=== PATIENT | female | born 1935 | race Caucasian/White ===

== ENCOUNTER 2018-10-23 10:34 | Inpatient (IN) | payer MEDICARE, OTHER ==
[~2018-10-23] VITALS: Ht 149.9 cm; Wt 68.0 kg
[~2018-10-23 10:34] MED LIST: BASAGLAR K100 UNIT/1 SC; CLOP75; Crestor20 MG PO; FURO20 PO; GLIP10; LIDO700A20 TOP; LISI10; METF500 PO; METO2.5 PO; PANT40; PIOG15 PO; POTCHL20ER PO; ROSI4; ZOLP10
[2018-10-23 11:13] LABS: BASOPHILS ABSOLUTE AUTO 0.04 K/mm3 (0.00-0.23); BASOPHILS PERCENT AUTO 0 % (0-2); EOSINOPHILS PERCENT AUTO 1 % (0-6); Hematocrit 42.4 % (33.0-51.0); Hemoglobin 12.8 g/dL (11.5-16.0); IMMATURE GRAN ABSOLUTE AUTO 0.24 K/mm3 (0.00-0.10); IMMATURE GRAN PERCENT AUTO 3 % (0-1); LYMPHOCYTES PERCENT AUTO 25 % (21-46); MONOCYTES ABSOLUTE AUTO 0.62 K/mm3 (0.16-1.47); MONOCYTES PERCENT AUTO 7 % (4-13); Mean Corpuscular HGB 26.9 pg (26.0-34.0); Mean Corpuscular HGB Conc 30.2 g/dL (31.5-36.5); Mean Corpuscular Volume 89 fL (80-100); Mean Platelet Volume 9.8 fL (9.1-12.4); NEUTROPHILS ABSOLUTE AUTO 5.75 K/mm3 (1.96-9.15); NEUTROPHILS PERCENT AUTO 64 % (41-73); Platelet Count 299 K/mm3 (150-400); RDW Coefficient Variation 14.6 % (11.7-14.2); RDW Standard Deviation 47.2 fL (35.1-46.3); Red Blood Cell Count 4.76 M/mm3 (3.80-5.20); White Blood Cell Count 8.95 K/mm3 (4.00-11.30)
[2018-10-23 11:32] LABS: Alanine Aminotransfer (ALT/SGP 16 U/L (12-78); Albumin, Blood 2.9 g/dL (3.4-5.0); Albumin/Globulin Ratio 0.6 (0.8-1.8); Alk Phos 116 U/L (50-136); Anion Gap 8 mmol/L (6-16); Aspartate Aminotrans (AST/SGOT 22 U/L (12-37); Bilirubin, Total 0.4 mg/dL (0.1-1.0); Blood Urea Nitrogen 18 mg/dL (8-24); Bun/Creatinine Ratio 12.9 (12.0-20.0); CO2, Blood 27 mmol/L (21-32); Calcium, Blood 8.6 mg/dL (8.5-10.1); Chloride, Blood 101 mmol/L (98-108); Globulin, Blood 4.5 g/dL (2.2-4.0); Glomerular Filtration Rate 38 (60-); Glucose, Blood 189 mg/dL (70-99); Potassium, Blood 4.5 mmol/L (3.5-5.5); Sodium, Blood 136 mmol/L (136-145); Total Protein, Blood 7.4 g/dL (6.4-8.2); Troponin I <0.015 ng/mL (0.000-0.040)
[2018-10-23] MEDS ORDERED: Lisinopril2.5 MG PO (12:34)
[2018-10-23] MEDS ORDERED: PANT40 PO (12:35)
[2018-10-23] MEDS ORDERED: Novolog100 UNIT/2 SC (12:37)
[2018-10-23] MEDS ORDERED: CYCL0.05OP BOTHEYES (12:38)
[2018-10-23] MEDS ORDERED: GABA300 PO (17:16)
[2018-10-23] MEDS ORDERED: Hair, Skin & N1 EACH PO (17:17)
[2018-10-23 18:57] LABS: Adenovirus Not Detected (NOT DETECT); Bordetella pertussis Not Detected (NOT DETECT); Chlamydophila pneumoniae Not Detected (NOT DETECT); Coronavirus 229E Not Detected (NOT DETECT); Coronavirus HKU1 Not Detected (NOT DETECT); Coronavirus NL63 Not Detected (NOT DETECT); Coronavirus OC43 Not Detected (NOT DETECT); Human Metapneumovirus Not Detected (NOT DETECT); Human Rhinovirus/Enterovirus Not Detected (NOT DETECT); Influenza A Not Detected (NOT DETECT); Influenza A/2009-H1 Not Detected (NOT DETECT); Influenza A/H1 Not Detected (NOT DETECT); Influenza A/H3 Not Detected (NOT DETECT); Influenza B Not Detected (NOT DETECT); Mycoplasma pneumoniae Not Detected (NOT DETECT); Parainfluenza Virus 1 Not Detected (NOT DETECT); Parainfluenza Virus 2 Not Detected (NOT DETECT); Parainfluenza Virus 3 Not Detected (NOT DETECT); Parainfluenza Virus 4 Not Detected (NOT DETECT); Respiratory Syncytial Virus Not Detected (NOT DETECT)
[2018-10-23 21:40] LABS: PCO2 Arterial 78.4 mmHg (35-45); PO2 Arterial 73.4 mmHg (80-100); pH Blood Arterial 7.12 (7.35-7.45)
[2018-10-24 03:58] LABS: BASOPHILS ABSOLUTE AUTO 0.05 K/mm3 (0.00-0.23); BASOPHILS PERCENT AUTO 0 % (0-2); EOSINOPHILS PERCENT AUTO 0 % (0-6); Hematocrit 41.7 % (33.0-51.0); Hemoglobin 12.7 g/dL (11.5-16.0); IMMATURE GRAN ABSOLUTE AUTO 0.38 K/mm3 (0.00-0.10); IMMATURE GRAN PERCENT AUTO 3 % (0-1); LYMPHOCYTES ABSOLUTE AUTO 0.74 K/mm3 (0.84-5.20); LYMPHOCYTES PERCENT AUTO 6 % (21-46); MONOCYTES ABSOLUTE AUTO 0.29 K/mm3 (0.16-1.47); MONOCYTES PERCENT AUTO 2 % (4-13); Mean Corpuscular HGB 27.1 pg (26.0-34.0); Mean Corpuscular HGB Conc 30.5 g/dL (31.5-36.5); Mean Corpuscular Volume 89 fL (80-100); Mean Platelet Volume 10.2 fL (9.1-12.4); NEUTROPHILS ABSOLUTE AUTO 11.69 K/mm3 (1.96-9.15); NEUTROPHILS PERCENT AUTO 89 % (41-73); Platelet Count 328 K/mm3 (150-400); RDW Coefficient Variation 14.6 % (11.7-14.2); RDW Standard Deviation 47.3 fL (35.1-46.3); Red Blood Cell Count 4.68 M/mm3 (3.80-5.20); White Blood Cell Count 13.15 K/mm3 (4.00-11.30)
[2018-10-24 05:10] LABS: Anion Gap 6 mmol/L (6-16); Blood Urea Nitrogen 22 mg/dL (8-24); Bun/Creatinine Ratio 17.9 (12.0-20.0); CO2, Blood 27 mmol/L (21-32); Calcium, Blood 8.7 mg/dL (8.5-10.1); Chloride, Blood 101 mmol/L (98-108); Creatinine, Blood 1.23 mg/dL (0.40-1.00); Glomerular Filtration Rate 44 (60-); Glucose, Blood 403 mg/dL (70-99); Potassium, Blood 5.6 mmol/L (3.5-5.5); Sodium, Blood 134 mmol/L (136-145); Vancomycin, Random 14.6 ug/mL
[2018-10-24 09:33] LABS: Albumin, Blood 2.6 g/dL (3.4-5.0); Anion Gap 7 mmol/L (6-16); Blood Urea Nitrogen 22 mg/dL (8-24); Bun/Creatinine Ratio 18.3 (12.0-20.0); CO2, Blood 27 mmol/L (21-32); Calcium, Blood 8.9 mg/dL (8.5-10.1); Chloride, Blood 103 mmol/L (98-108); Glomerular Filtration Rate 45 (60-); Glucose, Blood 386 mg/dL (70-99); Phosphorus, Blood 3.2 mg/dL (2.5-4.9); Potassium, Blood 5.6 mmol/L (3.5-5.5); Sodium, Blood 137 mmol/L (136-145)
[2018-10-24 10:52] LABS: PCO2 Arterial 55.7 mmHg (35-45); PO2 Arterial 63.7 mmHg (80-100); pH Blood Arterial 7.31 (7.35-7.45)
[2018-10-24 14:36] LABS: Albumin, Blood 2.8 g/dL (3.4-5.0); Anion Gap 5 mmol/L (6-16); Blood Urea Nitrogen 22 mg/dL (8-24); CO2, Blood 30 mmol/L (21-32); Calcium, Blood 9.1 mg/dL (8.5-10.1); Chloride, Blood 102 mmol/L (98-108); Creatinine, Blood 1.22 mg/dL (0.40-1.00); Glomerular Filtration Rate 44 (60-); Glucose, Blood 281 mg/dL (70-99); Phosphorus, Blood 2.4 mg/dL (2.5-4.9); Potassium, Blood 5.1 mmol/L (3.5-5.5); Sodium, Blood 137 mmol/L (136-145)
[2018-10-25 04:54] LABS: BASOPHILS ABSOLUTE AUTO 0.03 K/mm3 (0.00-0.23); BASOPHILS PERCENT AUTO 0 % (0-2); EOSINOPHILS PERCENT AUTO 0 % (0-6); Hematocrit 39.5 % (33.0-51.0); Hemoglobin 12.3 g/dL (11.5-16.0); IMMATURE GRAN PERCENT AUTO 2 % (0-1); LYMPHOCYTES ABSOLUTE AUTO 0.67 K/mm3 (0.84-5.20); LYMPHOCYTES PERCENT AUTO 3 % (21-46); MONOCYTES ABSOLUTE AUTO 0.72 K/mm3 (0.16-1.47); MONOCYTES PERCENT AUTO 3 % (4-13); Mean Corpuscular HGB 26.7 pg (26.0-34.0); Mean Corpuscular HGB Conc 31.1 g/dL (31.5-36.5); Mean Platelet Volume 9.7 fL (9.1-12.4); NEUTROPHILS ABSOLUTE AUTO 19.05 K/mm3 (1.96-9.15); NEUTROPHILS PERCENT AUTO 91 % (41-73); Platelet Count 308 K/mm3 (150-400); RDW Coefficient Variation 14.9 % (11.7-14.2); RDW Standard Deviation 46.1 fL (35.1-46.3); White Blood Cell Count 20.87 K/mm3 (4.00-11.30)
[2018-10-25 05:05] LABS: Mean Corpuscular Volume 86 fL (80-100)
[2018-10-25 05:14] LABS: Albumin, Blood 2.7 g/dL (3.4-5.0); Anion Gap 5 mmol/L (6-16); Blood Urea Nitrogen 23 mg/dL (8-24); Bun/Creatinine Ratio 18.5 (12.0-20.0); CO2, Blood 32 mmol/L (21-32); Calcium, Blood 9.1 mg/dL (8.5-10.1); Chloride, Blood 103 mmol/L (98-108); Creatinine, Blood 1.24 mg/dL (0.40-1.00); Glomerular Filtration Rate 44 (60-); Glucose, Blood 113 mg/dL (70-99); Phosphorus, Blood 2.3 mg/dL (2.5-4.9); Potassium, Blood 4.3 mmol/L (3.5-5.5); Sodium, Blood 140 mmol/L (136-145); Vancomycin, Random 15.9 ug/mL
[2018-10-25 09:45] LABS: PCO2 Arterial 47.4 mmHg (35-45); PO2 Arterial 111 mmHg (80-100); pH Blood Arterial 7.44 (7.35-7.45)
[2018-10-26 05:31] LABS: BASOPHILS ABSOLUTE AUTO 0.02 K/mm3 (0.00-0.23); BASOPHILS PERCENT AUTO 0 % (0-2); EOSINOPHILS PERCENT AUTO 0 % (0-6); Hematocrit 40.4 % (33.0-51.0); Hemoglobin 12.2 g/dL (11.5-16.0); IMMATURE GRAN ABSOLUTE AUTO 0.18 K/mm3 (0.00-0.10); IMMATURE GRAN PERCENT AUTO 1 % (0-1); LYMPHOCYTES ABSOLUTE AUTO 0.42 K/mm3 (0.84-5.20); LYMPHOCYTES PERCENT AUTO 3 % (21-46); MONOCYTES ABSOLUTE AUTO 0.72 K/mm3 (0.16-1.47); MONOCYTES PERCENT AUTO 4 % (4-13); Mean Corpuscular HGB 26.9 pg (26.0-34.0); Mean Corpuscular HGB Conc 30.2 g/dL (31.5-36.5); Mean Platelet Volume 10.1 fL (9.1-12.4); NEUTROPHILS ABSOLUTE AUTO 15.31 K/mm3 (1.96-9.15); NEUTROPHILS PERCENT AUTO 92 % (41-73); Platelet Count 300 K/mm3 (150-400); RDW Coefficient Variation 15.1 % (11.7-14.2); RDW Standard Deviation 48.9 fL (35.1-46.3); Red Blood Cell Count 4.54 M/mm3 (3.80-5.20); White Blood Cell Count 16.65 K/mm3 (4.00-11.30)
[2018-10-26 05:33] LABS: Mean Corpuscular Volume 89 fL (80-100)
[2018-10-26 05:54] LABS: Albumin, Blood 2.7 g/dL (3.4-5.0); Anion Gap 4 mmol/L (6-16); Blood Urea Nitrogen 30 mg/dL (8-24); Bun/Creatinine Ratio 23.8 (12.0-20.0); CO2, Blood 33 mmol/L (21-32); Chloride, Blood 103 mmol/L (98-108); Creatinine, Blood 1.26 mg/dL (0.40-1.00); Glomerular Filtration Rate 43 (60-); Glucose, Blood 204 mg/dL (70-99); Phosphorus, Blood 3.2 mg/dL (2.5-4.9); Potassium, Blood 4.1 mmol/L (3.5-5.5); Sodium, Blood 140 mmol/L (136-145); Vancomycin, Random 16.5 ug/mL
[2018-10-27 04:13] LABS: BASOPHILS ABSOLUTE AUTO 0.01 K/mm3 (0.00-0.23); BASOPHILS PERCENT AUTO 0 % (0-2); EOSINOPHILS PERCENT AUTO 0 % (0-6); Hematocrit 40.9 % (33.0-51.0); Hemoglobin 12.5 g/dL (11.5-16.0); IMMATURE GRAN PERCENT AUTO 1 % (0-1); LYMPHOCYTES PERCENT AUTO 2 % (21-46); MONOCYTES PERCENT AUTO 5 % (4-13); Mean Corpuscular HGB 26.8 pg (26.0-34.0); Mean Corpuscular HGB Conc 30.6 g/dL (31.5-36.5); Mean Corpuscular Volume 88 fL (80-100); Mean Platelet Volume 10.1 fL (9.1-12.4); NEUTROPHILS ABSOLUTE AUTO 11.31 K/mm3 (1.96-9.15); NEUTROPHILS PERCENT AUTO 92 % (41-73); Platelet Count 299 K/mm3 (150-400); RDW Coefficient Variation 14.9 % (11.7-14.2); RDW Standard Deviation 47.9 fL (35.1-46.3); Red Blood Cell Count 4.66 M/mm3 (3.80-5.20); White Blood Cell Count 12.32 K/mm3 (4.00-11.30)
[2018-10-27 04:41] LABS: Magnesium, Blood 2.3 mg/dL (1.6-2.4)
[2018-10-27 04:44] LABS: Albumin, Blood 2.7 g/dL (3.4-5.0); Albumin/Globulin Ratio 0.7 (0.8-1.8); Bilirubin, Total 0.4 mg/dL (0.1-1.0); Calcium, Blood 8.9 mg/dL (8.5-10.1); Creatinine, Blood 1.18 mg/dL (0.40-1.00); Globulin, Blood 3.7 g/dL (2.2-4.0); Potassium, Blood 4.1 mmol/L (3.5-5.5); Total Protein, Blood 6.4 g/dL (6.4-8.2)
[2018-10-28 04:07] LABS: BASOPHILS ABSOLUTE AUTO 0.02 K/mm3 (0.00-0.23); BASOPHILS PERCENT AUTO 0 % (0-2); EOSINOPHILS PERCENT AUTO 0 % (0-6); Hematocrit 42.2 % (33.0-51.0); Hemoglobin 12.8 g/dL (11.5-16.0); IMMATURE GRAN ABSOLUTE AUTO 0.12 K/mm3 (0.00-0.10); IMMATURE GRAN PERCENT AUTO 1 % (0-1); LYMPHOCYTES PERCENT AUTO 3 % (21-46); MONOCYTES ABSOLUTE AUTO 0.52 K/mm3 (0.16-1.47); MONOCYTES PERCENT AUTO 5 % (4-13); Mean Corpuscular HGB 26.4 pg (26.0-34.0); Mean Corpuscular HGB Conc 30.3 g/dL (31.5-36.5); Mean Corpuscular Volume 87 fL (80-100); Mean Platelet Volume 10.2 fL (9.1-12.4); NEUTROPHILS ABSOLUTE AUTO 10.15 K/mm3 (1.96-9.15); NEUTROPHILS PERCENT AUTO 91 % (41-73); Platelet Count 259 K/mm3 (150-400); RDW Coefficient Variation 14.9 % (11.7-14.2); RDW Standard Deviation 47.6 fL (35.1-46.3); Red Blood Cell Count 4.85 M/mm3 (3.80-5.20); White Blood Cell Count 11.11 K/mm3 (4.00-11.30)
[2018-10-28 04:27] LABS: Albumin, Blood 2.6 g/dL (3.4-5.0); Albumin/Globulin Ratio 0.7 (0.8-1.8); Bilirubin, Total 0.6 mg/dL (0.1-1.0); Bun/Creatinine Ratio 31.9 (12.0-20.0); Creatinine, Blood 1.16 mg/dL (0.40-1.00); Globulin, Blood 3.6 g/dL (2.2-4.0); Magnesium, Blood 2.4 mg/dL (1.6-2.4); Potassium, Blood 4.7 mmol/L (3.5-5.5); Total Protein, Blood 6.2 g/dL (6.4-8.2)
[2018-10-28 09:53] LABS: Thyroid Stimulating Hormone 0.291 uIU/mL (0.360-4.800)
[2018-10-28 10:15] LABS: Troponin I 4.71 ng/mL (0.000-0.040)
[2018-10-29 03:51] LABS: BASOPHILS ABSOLUTE AUTO 0.03 K/mm3 (0.00-0.23); BASOPHILS PERCENT AUTO 0 % (0-2); EOSINOPHILS ABSOLUTE AUTO 0.01 K/mm3 (0.00-0.68); EOSINOPHILS PERCENT AUTO 0 % (0-6); Hematocrit 42.7 % (33.0-51.0); Hemoglobin 13.1 g/dL (11.5-16.0); IMMATURE GRAN ABSOLUTE AUTO 0.17 K/mm3 (0.00-0.10); IMMATURE GRAN PERCENT AUTO 1 % (0-1); LYMPHOCYTES ABSOLUTE AUTO 0.64 K/mm3 (0.84-5.20); LYMPHOCYTES PERCENT AUTO 4 % (21-46); MONOCYTES ABSOLUTE AUTO 1.42 K/mm3 (0.16-1.47); MONOCYTES PERCENT AUTO 9 % (4-13); Mean Corpuscular HGB 26.8 pg (26.0-34.0); Mean Corpuscular HGB Conc 30.7 g/dL (31.5-36.5); Mean Corpuscular Volume 87 fL (80-100); Mean Platelet Volume 10.1 fL (9.1-12.4); NEUTROPHILS ABSOLUTE AUTO 12.96 K/mm3 (1.96-9.15); NEUTROPHILS PERCENT AUTO 85 % (41-73); Platelet Count 245 K/mm3 (150-400); RDW Coefficient Variation 14.9 % (11.7-14.2); RDW Standard Deviation 47.9 fL (35.1-46.3); Red Blood Cell Count 4.89 M/mm3 (3.80-5.20); White Blood Cell Count 15.23 K/mm3 (4.00-11.30)
[2018-10-29 04:13] LABS: Magnesium, Blood 2.4 mg/dL (1.6-2.4)
[2018-10-29 04:22] LABS: Alanine Aminotransfer (ALT/SGP 28 U/L (12-78); Albumin, Blood 2.6 g/dL (3.4-5.0); Albumin/Globulin Ratio 0.7 (0.8-1.8); Alk Phos 77 U/L (50-136); Anion Gap 3 mmol/L (6-16); Aspartate Aminotrans (AST/SGOT 28 U/L (12-37); Bilirubin, Total 0.6 mg/dL (0.1-1.0); Blood Urea Nitrogen 43 mg/dL (8-24); Bun/Creatinine Ratio 34.1 (12.0-20.0); CO2, Blood 35 mmol/L (21-32); Calcium, Blood 8.8 mg/dL (8.5-10.1); Chloride, Blood 100 mmol/L (98-108); Creatinine, Blood 1.26 mg/dL (0.40-1.00); Digoxin (Lanoxin) 1.57 ug/mL (0.80-2.00); Globulin, Blood 3.5 g/dL (2.2-4.0); Glomerular Filtration Rate 43 (60-); Glucose, Blood 225 mg/dL (70-99); Potassium, Blood 4.6 mmol/L (3.5-5.5); Sodium, Blood 138 mmol/L (136-145); Total Protein, Blood 6.1 g/dL (6.4-8.2)
[2018-10-29 12:30] LABS: International Normalized Ratio 1.11; Prothrombin Time Results 11.7 Sec (9.7-11.5)
[2018-10-30 03:43] LABS: BASOPHILS ABSOLUTE AUTO 0.04 K/mm3 (0.00-0.23); BASOPHILS PERCENT AUTO 0 % (0-2); EOSINOPHILS ABSOLUTE AUTO 0.02 K/mm3 (0.00-0.68); EOSINOPHILS PERCENT AUTO 0 % (0-6); Hematocrit 40.5 % (33.0-51.0); Hemoglobin 12.4 g/dL (11.5-16.0); IMMATURE GRAN ABSOLUTE AUTO 0.23 K/mm3 (0.00-0.10); IMMATURE GRAN PERCENT AUTO 2 % (0-1); LYMPHOCYTES ABSOLUTE AUTO 1.01 K/mm3 (0.84-5.20); LYMPHOCYTES PERCENT AUTO 7 % (21-46); MONOCYTES PERCENT AUTO 8 % (4-13); Mean Corpuscular HGB 26.9 pg (26.0-34.0); Mean Corpuscular HGB Conc 30.6 g/dL (31.5-36.5); Mean Corpuscular Volume 88 fL (80-100); Mean Platelet Volume 10.2 fL (9.1-12.4); NEUTROPHILS ABSOLUTE AUTO 11.58 K/mm3 (1.96-9.15); NEUTROPHILS PERCENT AUTO 83 % (41-73); Platelet Count 243 K/mm3 (150-400); RDW Coefficient Variation 14.9 % (11.7-14.2); RDW Standard Deviation 47.9 fL (35.1-46.3); Red Blood Cell Count 4.61 M/mm3 (3.80-5.20); White Blood Cell Count 13.98 K/mm3 (4.00-11.30)
[2018-10-30 04:06] LABS: Alanine Aminotransfer (ALT/SGP 27 U/L (12-78); Albumin, Blood 2.4 g/dL (3.4-5.0); Albumin/Globulin Ratio 0.7 (0.8-1.8); Alk Phos 70 U/L (50-136); Anion Gap 4 mmol/L (6-16); Aspartate Aminotrans (AST/SGOT 25 U/L (12-37); Bilirubin, Total 0.6 mg/dL (0.1-1.0); Blood Urea Nitrogen 39 mg/dL (8-24); Bun/Creatinine Ratio 33.9 (12.0-20.0); CO2, Blood 35 mmol/L (21-32); Calcium, Blood 8.5 mg/dL (8.5-10.1); Chloride, Blood 101 mmol/L (98-108); Creatinine, Blood 1.15 mg/dL (0.40-1.00); Globulin, Blood 3.3 g/dL (2.2-4.0); Glomerular Filtration Rate 48 (60-); Glucose, Blood 98 mg/dL (70-99); Potassium, Blood 3.8 mmol/L (3.5-5.5); Sodium, Blood 140 mmol/L (136-145); Total Protein, Blood 5.7 g/dL (6.4-8.2)
[2018-10-30 04:14] LABS: Digoxin (Lanoxin) 0.78 ug/mL (0.80-2.00)
[2018-10-31 05:08] LABS: BASOPHILS ABSOLUTE AUTO 0.04 K/mm3 (0.00-0.23); BASOPHILS PERCENT AUTO 0 % (0-2); EOSINOPHILS ABSOLUTE AUTO 0.03 K/mm3 (0.00-0.68); EOSINOPHILS PERCENT AUTO 0 % (0-6); Hematocrit 40.6 % (33.0-51.0); Hemoglobin 12.5 g/dL (11.5-16.0); IMMATURE GRAN ABSOLUTE AUTO 0.27 K/mm3 (0.00-0.10); IMMATURE GRAN PERCENT AUTO 2 % (0-1); LYMPHOCYTES ABSOLUTE AUTO 1.14 K/mm3 (0.84-5.20); LYMPHOCYTES PERCENT AUTO 9 % (21-46); MONOCYTES ABSOLUTE AUTO 0.97 K/mm3 (0.16-1.47); MONOCYTES PERCENT AUTO 8 % (4-13); Mean Corpuscular HGB 26.7 pg (26.0-34.0); Mean Corpuscular HGB Conc 30.8 g/dL (31.5-36.5); Mean Corpuscular Volume 87 fL (80-100); Mean Platelet Volume 10.1 fL (9.1-12.4); NEUTROPHILS ABSOLUTE AUTO 10.17 K/mm3 (1.96-9.15); NEUTROPHILS PERCENT AUTO 81 % (41-73); Platelet Count 218 K/mm3 (150-400); RDW Standard Deviation 47.4 fL (35.1-46.3); Red Blood Cell Count 4.69 M/mm3 (3.80-5.20); White Blood Cell Count 12.62 K/mm3 (4.00-11.30)
[2018-10-31 06:04] LABS: Albumin, Blood 2.5 g/dL (3.4-5.0); Albumin/Globulin Ratio 0.7 (0.8-1.8); Bilirubin, Total 0.6 mg/dL (0.1-1.0); Bun/Creatinine Ratio 33.3 (12.0-20.0); Calcium, Blood 8.6 mg/dL (8.5-10.1); Creatinine, Blood 1.23 mg/dL (0.40-1.00); Globulin, Blood 3.4 g/dL (2.2-4.0); Potassium, Blood 4.3 mmol/L (3.5-5.5); Total Protein, Blood 5.9 g/dL (6.4-8.2)
[2018-10-31] MEDS ORDERED: INSULANPEN SC (12:48)
[2018-10-31] MEDS ORDERED: POTA10T PO (12:51)
[2018-10-31] MEDS ORDERED: Pacerone100 MG PO (12:51)
[2018-10-31] MEDS ORDERED: ATOR40TA PO (12:51)
[2018-10-31] MEDS ORDERED: LANOXIN125 MCG PO (12:52)
[2018-10-31] MEDS ORDERED: Norco 5-325 Ta1 EACH PO (12:53)
[2018-10-31] MEDS ORDERED: LEVFLO500 PO (12:55)
[2018-10-31] MEDS ORDERED: PRED10 PO (12:56)
[2018-10-31] MEDS ORDERED: CLOP75 PO (22:57)
[2018-12-24] MEDS ORDERED: Humalog100 UNIT/1 SC (15:12)
[2018-12-24] MEDS ORDERED: LISI5 PO (15:15)
[2018-12-24] MEDS ORDERED: CLIN300 PO (15:16)
[2018-12-24] MEDS ORDERED: ROSU5 (15:17)
== END 2018-10-31 14:54 | disposition home health service (06) | DRG 871 ==
LOC: ER 10:34 → MEDS 12:59 → PCU 12:59 → MEDS 10-30 15:01 → ENPENDDIS 10-31 10:58 → MEDS 10-31 14:54
PROVIDERS: Emergency Medicine; Internal Medicine; Internal Medicine Cardiovascular Disease; Nurse Practitioner Acute Care; ADMIT Family Medicine
PROC: 5A09457 Assistance with Respiratory Ventilation, 24-96 Consecutive Hours, Continuous Positive Airway Pressure (ICD-10-PCS; principal; 2018-10-23)
DX: A41.9 Sepsis, unspecified organism (principal); I50.33 Acute on chronic diastolic (congestive) heart failure; J96.01 Acute respiratory failure with hypoxia; I21.4 Non-ST elevation (NSTEMI) myocardial infarction; J96.02 Acute respiratory failure with hypercapnia; J18.1 Lobar pneumonia, unspecified organism; N17.9 Acute kidney failure, unspecified; J44.0 Chronic obstructive pulmonary disease with (acute) lower respiratory infection; I48.91 Unspecified atrial fibrillation; G35 Multiple sclerosis; R65.20 Severe sepsis without septic shock; Z51.5 Encounter for palliative care; E78.5 Hyperlipidemia, unspecified; Z86.73 Personal history of transient ischemic attack (TIA), and cerebral infarction without residual deficits; I73.9 Peripheral vascular disease, unspecified; L89.892 Pressure ulcer of other site, stage 2; Z99.3 Dependence on wheelchair; E11.22 Type 2 diabetes mellitus with diabetic chronic kidney disease; N18.3 Chronic kidney disease, stage 3 (moderate); Z66 Do not resuscitate; Z79.4 Long term (current) use of insulin
CPT/HCPCS: 36415; 36569; 36600; 71045; 71046; 78582; 80048; 80053; 80069; 80162; 80202; 82803; 82947; 83036; 83605; 83735; 83880; 84439; 84443; 84484; 85025; 85379; 85610; 85730; 87040; 87486; 87581; 87633; 87798; 92526; 92610; 93005; 93010; 93306; 93308; 93321; 94640; 94660; 94762; 96361; 96365; 96367; 96375; 99285-25; A9270; A9270-GY; A9540; A9558; C1751; J0282; J0692; J1160; J1644; J1650; J1815; J1885; J1940; J1956; J2405; J2930; J3370; J3475; J7030; J7050; J7060; J7120; J7512

== ENCOUNTER 2018-10-31 22:37 | Observation (INO) | payer MEDICARE, OTHER ==
[~2018-10-31] VITALS: Ht 149.9 cm; Wt 68.0 kg
[~2018-10-31 22:37] MED LIST changes: +ATOR40TA PO; +CYCL0.05OP BOTHEYES; +GABA300 PO; +Hair, Skin & N1 EACH PO; +INSULANPEN SC; +LANOXIN125 MCG PO; +LEVFLO500 PO; +Lisinopril2.5 MG PO; +Norco 5-325 Ta1 EACH PO; +Novolog100 UNIT/2 SC; +PANT40 PO; +POTA10T PO; +PRED10 PO; +Pacerone100 MG PO
[2018-10-31] MEDS ORDERED: CLOP75 PO (22:57)
[2018-10-31 23:29] LABS: BASOPHILS ABSOLUTE AUTO 0.03 K/mm3 (0.00-0.23); BASOPHILS PERCENT AUTO 0 % (0-2); EOSINOPHILS ABSOLUTE AUTO 0.02 K/mm3 (0.00-0.68); EOSINOPHILS PERCENT AUTO 0 % (0-6); Hematocrit 41.3 % (33.0-51.0); Hemoglobin 12.7 g/dL (11.5-16.0); IMMATURE GRAN ABSOLUTE AUTO 0.24 K/mm3 (0.00-0.10); IMMATURE GRAN PERCENT AUTO 2 % (0-1); LYMPHOCYTES ABSOLUTE AUTO 0.83 K/mm3 (0.84-5.20); LYMPHOCYTES PERCENT AUTO 7 % (21-46); MONOCYTES ABSOLUTE AUTO 0.84 K/mm3 (0.16-1.47); MONOCYTES PERCENT AUTO 7 % (4-13); Mean Corpuscular HGB 26.9 pg (26.0-34.0); Mean Corpuscular HGB Conc 30.8 g/dL (31.5-36.5); Mean Corpuscular Volume 88 fL (80-100); Mean Platelet Volume 10.8 fL (9.1-12.4); NEUTROPHILS ABSOLUTE AUTO 10.28 K/mm3 (1.96-9.15); NEUTROPHILS PERCENT AUTO 84 % (41-73); Platelet Count 228 K/mm3 (150-400); RDW Coefficient Variation 14.6 % (11.7-14.2); RDW Standard Deviation 47.1 fL (35.1-46.3); Red Blood Cell Count 4.72 M/mm3 (3.80-5.20); White Blood Cell Count 12.24 K/mm3 (4.00-11.30)
[2018-10-31 23:51] LABS: Albumin, Blood 2.7 g/dL (3.4-5.0); Albumin/Globulin Ratio 0.8 (0.8-1.8); Bilirubin, Total 0.6 mg/dL (0.1-1.0); Bun/Creatinine Ratio 39.5 (12.0-20.0); Calcium, Blood 8.6 mg/dL (8.5-10.1); Creatinine, Blood 1.29 mg/dL (0.40-1.00); Globulin, Blood 3.4 g/dL (2.2-4.0); Potassium, Blood 4.5 mmol/L (3.5-5.5); Total Protein, Blood 6.1 g/dL (6.4-8.2)
[2018-11-01 02:27] LABS: Digoxin (Lanoxin) 0.81 ug/mL (0.80-2.00)
--- NOTE | 2018-11-01 04:36 | NUR ---
SHIFT SUMMARY PT ARRIVED TO ROOM IN NO DISTRESS. PT IS NONAMBULATORY PER PT. PT HAD SOME LEFT SIDE FLANK PAIN AND TX PER EMAR. PT HAS BEEN SLEEPING WELL SINCE ARRIVAL. PT HAS NOT URINATED THUS FAR WILL CONTINUE TO ASSESS AND POSSIBLY BLADDER SCAN SOON. CALL LIGHT IN REACH. PT SLEEPING.
[2018-11-01 18:21] LABS: Source, Urine Catheter
--- NOTE | 2018-11-01 18:41 | NUR ---
SHIFT SUMMARY PATIENT HAS BEEN UNABLE TO VOID TODAY. STRAIGHT CATH PRN, RETAINING 1000ML OF URINE. FAMILY IN VISITING. STATES PATIENT LIVES AT HOME ALONE CAREGIVERS AND HOUSE KEEPERS VISIT HOME MINIMALLY. FAMILY LIVES OUT OF TOWN. UNABLE TO CARE FOR PATIENT.
[2018-11-01 19:16] LABS: Bilirubin, Urine Neg (Neg); Blood, Urine 3+ (Neg); Glucose Qualitative, Urine 2+ (Neg); Ketones, Urine 1+ (Neg); Leukocyte Esterase, Urine Neg (Neg); Nitrite, Urine Neg (Neg); Protein, Urine Neg (Neg); Specific Gravity, Urine 1.015 (1.003-1.022); Urobilinogen, Urine NORM (Normal)
[2018-11-01 19:32] LABS: Appearance, Urine Clear (Clear); Color, Urine Yellow (P-Yellow)
[2018-11-01 19:33] LABS: Squamous Epithelial Cells Rare /hpf (Few)
[2018-11-01 19:34] LABS: Bacteria Rare /hpf; White Blood Cells, Urine 0-2 /hpf (0-5)
--- NOTE | 2018-11-02 04:08 | NUR ---
SHIFT SUMMARY PT CONTINUES TO REFUSE TO EAT. PT DOES DRINK WATER FREQUENTLY. PT HAS HAD LITTLE URINE OUTPUT DURING SHIFT. PT BLADDER SCAN AT MIDNIGHT WAS UNREMARKABLE. PT INSULIN ORDER WAS CHANGED DUE TO PT NOT EATING. PT FAMILY IS CONCERNED TO WHAT THE PLAN FOR THE PT IS GOING TO BE. THEY WILL BE HERE SATURDAY TO MEET WITH PROVIDER. PT CURRENTLY SLEEPING AND BREATHING EASY. [facility].
[2018-11-02 05:06] LABS: BASOPHILS ABSOLUTE AUTO 0.02 K/mm3 (0.00-0.23); BASOPHILS PERCENT AUTO 0 % (0-2); EOSINOPHILS ABSOLUTE AUTO 0.17 K/mm3 (0.00-0.68); EOSINOPHILS PERCENT AUTO 2 % (0-6); Hematocrit 39.6 % (33.0-51.0); Hemoglobin 12.1 g/dL (11.5-16.0); IMMATURE GRAN ABSOLUTE AUTO 0.18 K/mm3 (0.00-0.10); IMMATURE GRAN PERCENT AUTO 2 % (0-1); LYMPHOCYTES ABSOLUTE AUTO 1.27 K/mm3 (0.84-5.20); LYMPHOCYTES PERCENT AUTO 13 % (21-46); MONOCYTES ABSOLUTE AUTO 0.73 K/mm3 (0.16-1.47); MONOCYTES PERCENT AUTO 7 % (4-13); Mean Corpuscular HGB 26.6 pg (26.0-34.0); Mean Corpuscular HGB Conc 30.6 g/dL (31.5-36.5); Mean Corpuscular Volume 87 fL (80-100); Mean Platelet Volume 10.3 fL (9.1-12.4); NEUTROPHILS ABSOLUTE AUTO 7.66 K/mm3 (1.96-9.15); NEUTROPHILS PERCENT AUTO 76 % (41-73); Platelet Count 202 K/mm3 (150-400); RDW Coefficient Variation 14.6 % (11.7-14.2); RDW Standard Deviation 46.2 fL (35.1-46.3); Red Blood Cell Count 4.55 M/mm3 (3.80-5.20); White Blood Cell Count 10.03 K/mm3 (4.00-11.30)
[2018-11-02 05:23] LABS: Bun/Creatinine Ratio 37.3 (12.0-20.0); Calcium, Blood 8.7 mg/dL (8.5-10.1); Creatinine, Blood 1.1 mg/dL (0.40-1.00); Potassium, Blood 3.8 mmol/L (3.5-5.5)
--- NOTE | 2018-11-02 18:18 | NUR ---
SHIFT SUMMARY PATIENT A&O X4, BEDREST. Q 2 REPOSITION. BLADDER SCANNING PATIENT EVERY 6 HOURS AND STRAIGHT CATH FOR >500 ML. RN BS X1 THIS SHIFT AND STRAIGHT CATH X1 WITH 500 ML OUT. PATIENT DENIES ANY PAIN, SOB, OR NAUSEA. O2 @ 2L NC, SATS >90%. VSS. NO ACUTE CHANGES THIS SHIFT. RN WILL CONTINUE TO MONITOR.
--- NOTE | 2018-11-03 04:23 | NUR ---
SHIFT SUMMARY PT WAS FOUND TO HAVE BP IN 90'S. PT CONTINUES TO HAVE POOR PO INTAKE. PROVIDER CALLED AND A ORDER FOR GENTLE HYDRATION WAS RECIEVED. PT DID NOT NEED TO BE STRIGHT CATHED THIS SHIFT. BLADDER SCAN WAS < 500 ML. NO COMPLAINTS FROM PT. WILL CONTINUE TO MONITIR. CALL LIGHT IN REACH.
[2018-11-03 08:31] LABS: BASOPHILS ABSOLUTE AUTO 0.03 K/mm3 (0.00-0.23); BASOPHILS PERCENT AUTO 0 % (0-2); EOSINOPHILS ABSOLUTE AUTO 0.14 K/mm3 (0.00-0.68); EOSINOPHILS PERCENT AUTO 2 % (0-6); Hematocrit 37.4 % (33.0-51.0); Hemoglobin 11.1 g/dL (11.5-16.0); IMMATURE GRAN ABSOLUTE AUTO 0.23 K/mm3 (0.00-0.10); IMMATURE GRAN PERCENT AUTO 3 % (0-1); LYMPHOCYTES ABSOLUTE AUTO 1.29 K/mm3 (0.84-5.20); LYMPHOCYTES PERCENT AUTO 16 % (21-46); MONOCYTES ABSOLUTE AUTO 0.65 K/mm3 (0.16-1.47); MONOCYTES PERCENT AUTO 8 % (4-13); Mean Corpuscular HGB 26.3 pg (26.0-34.0); Mean Corpuscular HGB Conc 29.7 g/dL (31.5-36.5); Mean Corpuscular Volume 89 fL (80-100); NEUTROPHILS ABSOLUTE AUTO 5.56 K/mm3 (1.96-9.15); NEUTROPHILS PERCENT AUTO 70 % (41-73); Platelet Count 178 K/mm3 (150-400); RDW Coefficient Variation 14.6 % (11.7-14.2); RDW Standard Deviation 46.5 fL (35.1-46.3); Red Blood Cell Count 4.22 M/mm3 (3.80-5.20)
[2018-11-03 08:51] LABS: Albumin, Blood 2.2 g/dL (3.4-5.0); Albumin/Globulin Ratio 0.8 (0.8-1.8); Bilirubin, Total 0.5 mg/dL (0.1-1.0); Bun/Creatinine Ratio 37.4 (12.0-20.0); Creatinine, Blood 1.15 mg/dL (0.40-1.00); Globulin, Blood 2.9 g/dL (2.2-4.0); Potassium, Blood 4.1 mmol/L (3.5-5.5); Total Protein, Blood 5.1 g/dL (6.4-8.2)
--- NOTE | 2018-11-03 14:40 | NUR ---
Clinical Visit: Consult for readmission, symptom managment. Pt is alert, oriented, anxious and painful. She reports that she has chronic back pain. She states that it is moderate pain at this time. Reviewed order of events that led to a readmission. Pt was taken home last week, her house was locked and it took 45 minutes for the drivers to get the home open for her. Ambulance was called at a later time from a family member. She wasn't able to breath and she ran out of oxygen. At this time, she is expressing anger at being in the hospital again. She is frustrated and angry with her family for "making me do things that I don't want to," and "taking my independence away." She shares that she does not want any of her family members making choices for her. She trusts her caregiver and would like HER to be her designated caregiver. Recommended that pt fill out an advance directive. Reviewed document. She is interested in this document, however, she doesn't wish to do it right now, and her caregiver is on vacation and will not be able to accept and sign it right now. Instructed to please have this conversation with her caregiver, to see if it is something she would be willing to do. Pt states, "she would be fine with it. She has been with me for 4 years." Reported pain level to nursing. Will plan on following up with pt in the next few days to assist in develping a plan in advance of illness. She have very strong feelings about this conversation, as she feels that this has been discussed "all the time." Advised her that she is not in good health and has many chronic issues that are now getting worse. She states, "I DONT want to talk about it." Will remain available.
--- NOTE | 2018-11-03 18:09 | NUR ---
PATIENT IS ALERT AND ORIENTED AND COOPERATIVE WITH NURSING CARE. COMPLAINTS OF HIP PAIN TREATED PER EMAR AND REPOSITIONING. PATIENT ATE VERY LITTLE TODAY, POOR APPETITE. FAMILY WAS AT THE BEDSIDE AND SPOKE TO DR. JAMIL AND THE PAINT STOCK CLERK ABOUT DISCHARGE PLANNING. BLADDER SCANNED Q6H AND STRAIGHT CATHED TWICE THIS SHIFT WITH OUTPUT OF 800ML AND 625ML. ATTENDS IN PLACE. REPOSITIONED WITH PILLOWS. ASSISTANCE WITH FEEDING. WILL CONTINUE TO MONITOR
[2018-11-04 05:03] LABS: BASOPHILS ABSOLUTE AUTO 0.03 K/mm3 (0.00-0.23); BASOPHILS PERCENT AUTO 0 % (0-2); EOSINOPHILS PERCENT AUTO 1 % (0-6); IMMATURE GRAN ABSOLUTE AUTO 0.23 K/mm3 (0.00-0.10); IMMATURE GRAN PERCENT AUTO 3 % (0-1); LYMPHOCYTES ABSOLUTE AUTO 1.31 K/mm3 (0.84-5.20); LYMPHOCYTES PERCENT AUTO 15 % (21-46); MONOCYTES ABSOLUTE AUTO 0.66 K/mm3 (0.16-1.47); MONOCYTES PERCENT AUTO 8 % (4-13); Mean Corpuscular HGB 27.4 pg (26.0-34.0); Mean Corpuscular HGB Conc 30.6 g/dL (31.5-36.5); Mean Corpuscular Volume 90 fL (80-100); Mean Platelet Volume 11.1 fL (9.1-12.4); NEUTROPHILS ABSOLUTE AUTO 6.47 K/mm3 (1.96-9.15); NEUTROPHILS PERCENT AUTO 74 % (41-73); Platelet Count 184 K/mm3 (150-400); RDW Coefficient Variation 14.4 % (11.7-14.2); RDW Standard Deviation 46.7 fL (35.1-46.3); Red Blood Cell Count 4.02 M/mm3 (3.80-5.20)
[2018-11-04 05:23] LABS: Albumin, Blood 2.2 g/dL (3.4-5.0); Albumin/Globulin Ratio 0.8 (0.8-1.8); Bilirubin, Total 0.4 mg/dL (0.1-1.0); Bun/Creatinine Ratio 30.8 (12.0-20.0); Calcium, Blood 8.1 mg/dL (8.5-10.1); Creatinine, Blood 1.2 mg/dL (0.40-1.00); Globulin, Blood 2.8 g/dL (2.2-4.0); Magnesium, Blood 2.2 mg/dL (1.6-2.4); Potassium, Blood 4.5 mmol/L (3.5-5.5)
[2018-11-04 11:33] LABS: Source, Urine Catheter
[2018-11-04 11:45] LABS: Bilirubin, Urine Neg (Neg); Blood, Urine 5+ (Neg); Glucose Qualitative, Urine 1+ (Neg); Ketones, Urine Neg (Neg); Leukocyte Esterase, Urine 1+ (Neg); Nitrite, Urine Neg (Neg); Protein, Urine 1+ (Neg); Specific Gravity, Urine 1.015 (1.003-1.022); Urobilinogen, Urine NORM (Normal)
[2018-11-04 11:55] LABS: Appearance, Urine Hazy (Clear); Bacteria Rare /hpf; Color, Urine Yellow (P-Yellow); Squamous Epithelial Cells Not Seen /hpf (Few); Yeast/Fungi Urine Mod /hpf
--- NOTE | 2018-11-04 18:33 | NUR ---
PT. SITTING IN BED, DAUGHTER AND SON-IN-LAW AT BEDSIDE. FAMILY WAS HAPPY TO SEE SHE HAD NOT BEEN SENT HOME TODAY THEY ARE CONCERNED ABOUT HER SAFETY. PT. HAS NOT BEEN ABLE TO FEED HER SELF, SAYS SHE CAN'T SCHEDULING ADMINISTRATOR THE SPOON. ALSO IS UNABLE TO LIFT SMALL GLASS FOR A DRINK. NO CHOKING OR COUGHING NOTED WHEN TAKING MEDS OR EATING. PLACED A RAI CATHETER TODAY BECAUSE OF SEVERE URINARY RETENTION. PT. UNABLE TO SIT ON SIDE OF BED BUT DOES HELP WITH ROLLING SIDE TO SIDE. UNABLE TO WALK SAYS SHE USES A WHEELCHAIR AT HOME AND COOKS HER OWN MEALS. I DONT SEE HOW THAT IS POSSIBLE WHEN SHE CANT FEED HERSELF. FAMILY RELATED TO ME THAT THE PT. THOUGHT WE WERE TALKING ABOUT PUTTING HER ON HOSPICE, I LET THEM KNOW THAT, THAT WAS NOT ONE OF THE OPTIONS FAR I KNOW. I THINK SHE WAS MIXING UP HOME HEALTH WITH HOSPICE.
--- NOTE | 2018-11-05 19:00 | NUR ---
PT. SITTING IN BED ARMS PROPPED UP WITH PILLOWS, HEELS FLOATED. PT. HAS TO BE FED AND REFUSING FOOD, WILL DRRINK ABOUT 3/4 OF THE ENSURE. STATES"IM NOT HUNGRY THATS ALL I WANT." SS SPOKE WITH FAMILY TODAY REGARDING PLACEMENT. FAMILY ADAMANT THAT THEY DON'T WANT PT TO GO TO [facility] OR . NO NOTEABLE CHANGES THIS SHIFT.
--- NOTE | 2018-11-06 03:49 | NUR ---
SHIFT SUMMARY PATIENT HAD NO ACUTE CHANGES OBSERVED THIS SHIFT. AXO X3 AND BEDFAST. TURN Q2. CBG 162. RAI PATENT AND DRAINING FOR RETENTION. ON 2L O2 NC. VSS/AFEBRILE. REPORTED BACK PAIN X ONE AND RECEIVED NORCO PER EMAR. DENIES SOB AND N/V. FEEDER WITH HX MS. 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 CALL LIGHT IN REACH. BED IN LOWEST POSITION. WILL CONTINUE TO MONITOR UNTIL DAY SHIFT NURSE ASSUMES CARE.
[2018-11-06 05:52] LABS: Hematocrit 36.9 % (33.0-51.0); Hemoglobin 11.1 g/dL (11.5-16.0); Mean Corpuscular HGB 26.4 pg (26.0-34.0); Mean Corpuscular HGB Conc 30.1 g/dL (31.5-36.5); Mean Corpuscular Volume 88 fL (80-100); Mean Platelet Volume 10.8 fL (9.1-12.4); Platelet Count 191 K/mm3 (150-400); RDW Coefficient Variation 14.4 % (11.7-14.2); RDW Standard Deviation 45.7 fL (35.1-46.3); White Blood Cell Count 8.64 K/mm3 (4.00-11.30)
[2018-11-06 06:22] LABS: Bun/Creatinine Ratio 22.6 (12.0-20.0); Calcium, Blood 8.5 mg/dL (8.5-10.1); Creatinine, Blood 1.06 mg/dL (0.40-1.00); Potassium, Blood 4.6 mmol/L (3.5-5.5)
--- NOTE | 2018-11-06 10:07 | NUR ---
HOSPITALIST ROUNDED HOSPITALIST ROUNDED ON PT. INFORMED MY RELIEF THAT THE PT'S LUNGS WERE CONGESTED AND ORDERED LASIX IV STAT. LASIX HAS BEEN ADMINISTERED ORDERED.
--- NOTE | 2018-11-06 16:18 | NUR ---
SHIFT SUMMARY 83 YR OLD FEMALE ADMITTED FOR HYPOXIA. FULL CODE. A&O X4. HAS MS AND IS A LIFT PT, HAS NOT BEEN OUT OF BED. RAI IN FOR RETENTION. 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 O2 RUNNING AT 2 LPM. MECHANICAL SOFT DIET. BLIND IN LEFT EYE. ATTENDS AND BEDPAN IN USE. HAS DENTURES. FROM HOME, PT IS UNABLE TO CARE FOR HERSELF, NEEDS PLACEMENT. BIPAP IN USE AT NIGHT. HX: CHF, AFIB W/RVR, HEART FAILURE, COPD, RT LOWER LOBE PNEUMONIA, SEPSIS. TOE ULCER ON LEFT FOOT OPEN TO AIR. ACHS, MED SLIDING SCALE,
--- NOTE | 2018-11-07 03:42 | NUR ---
SHIFT SUMMARY PATIENT HAD NO ACUTE CHANGES OBSERVED THIS SHIFT. AXO X3 AND BEDFAST. LEGALLY BLIND AND CBG 139. PATIENT IS A FEEDER WITH HX MS AND TREMORS. PIV REMAINS INTACT. ON 2L O2 NC. VSS/AFEBRILE. REPORTED BACK PAIN X ONE AND RECEIVED NORCO PER EMAR. RAI IN FOR RETENTION. CALL LIGHT IN REACH. BED IN LOWEST POSITION. WILL CONTINUE TO MONITOR UNTIL DAY SHIFT NURSE ASSUMES CARE.
[2018-11-07 05:49] LABS: Bun/Creatinine Ratio 20.5 (12.0-20.0); Calcium, Blood 8.6 mg/dL (8.5-10.1); Creatinine, Blood 1.12 mg/dL (0.40-1.00); Potassium, Blood 4.3 mmol/L (3.5-5.5)
--- NOTE | 2018-11-07 19:30 | NUR ---
SHIFT SUMMARY: NO ACUTE CHANGES TO REPORT THIS SHIFT. PT A&O; LEGALLY BLIND; [place]; CALM AND COOPERATIVE WITH CARE. ROOM AIR AT HOME; O2 @ 2L VIA NC. PATIENT BEDFAST. RAI IN FOR RETENTION; PATENT AND DRAINING. PT C/O BACK PAIN X1 THIS SHIFT; NORCO PRN PER EMAR. AWAITING PLACEMENT IN ASSISTED LIVING. REPORT GIVEN TO ONCOMING RN.
--- NOTE | 2018-11-08 05:27 | NUR ---
SHIFT SUMMARY PT HAS SLEPT FAIR DURING THE NIGHT. OFFERS NO C/O'S. USED BEDPAN TO TRY AND HAVE A BM, UNSUCCESSFUL. HAS HAD SEVERAL SIPS OF WATER DURING THE NIGHT. PT ALERT AND ORIENTED. CALLS APPROPRIATLEY. NO ACUTE EVENTS OVER NIGHT, WILL CONTINUE TO MONITOR.
[2018-11-08 06:06] LABS: Bun/Creatinine Ratio 23.1 (12.0-20.0); Calcium, Blood 8.4 mg/dL (8.5-10.1); Creatinine, Blood 1.08 mg/dL (0.40-1.00); Potassium, Blood 4.3 mmol/L (3.5-5.5)
--- NOTE | 2018-11-08 19:09 | NUR ---
SHIFT SUMMARY PT AXO TO SELF, PLACE, FOLLOWING DIRECTIONS AND FAMILY. PT REQUESTED AND ATTEMPTED THE BED JOHNSON MULTIPLE TIMES THIS SHIFT WITH NO BM RESULTING. PT STATES SHE THOUGHT AND FELT THOUGH SHE DID HAVE A BM. PT DENIED PAIN THOUGHOUT SHIFT. NO ACUTE CHANGES THIS SHIFT. BED IN LOW POSITION, CALL LIGHT WITHIN REACH.
--- NOTE | 2018-11-09 04:58 | NUR ---
SHIFT SUMMARY PT HAS REQUESTED TO USE BEDPAN SEVERAL TIMES, SUPPOSITORY GIVEN AT BEDTIME TO HELP PROMOTE BM. PT STILL NOT ABLE TO HAVE A BM. RAI CATH PATENT AND DRAINING CLEAR YELLOW URINE. PT TAKING SIPS OF WATER T/O NIGHT. ALERT AND ORIENTED. NO ACUTE EVENTS NOTED DURING THE NIGHT, WILL CONTINUE TO MONITOR.
[2018-11-09 05:37] LABS: Calcium, Blood 8.5 mg/dL (8.5-10.1); Creatinine, Blood 1.18 mg/dL (0.40-1.00); Potassium, Blood 3.9 mmol/L (3.5-5.5)
--- NOTE | 2018-11-09 17:37 | NUR ---
SHIFT SUMMARY PT AXO TO SELF AND FOLLOWING DIRECTIONS. PT COMPLAINS OF PAIN IN LOWERBACK ONLY WHEN ASKED. PT MEDICATED PER EMAR. RAI PATENT AND DRAINING. PT HAD LARGE SOFT BM THIS SHIFT. NO OTHER CHANGES THIS SHIFT. BED IN LOW POSITION, CALL LIGHT WITHIN REACH. PT CALLS APPROPRIATELY. PT REQUIRES AND EATS WELL WITH ASSISTANCE.
[2018-11-10 04:59] LABS: Bun/Creatinine Ratio 19.6 (12.0-20.0); Calcium, Blood 8.4 mg/dL (8.5-10.1); Creatinine, Blood 1.12 mg/dL (0.40-1.00); Potassium, Blood 3.7 mmol/L (3.5-5.5)
--- NOTE | 2018-11-10 05:26 | NUR ---
SHIFT SUMMARY PT HAS SLEPT WELL DURING THE NIGHT, MEDICATED FOR BACK PAIN X1. NO ACUTE EVENTS NOTED DURING THE NIGHT. PT REFUSED ORAL CARES TO BE DONE AND REFUSED TO HAVE DENTURES CLEANED TONIGHT. WILL CONTINUE TO MONITOR.
--- NOTE | 2018-11-10 17:57 | NUR ---
SUMMARY: NO ACUTE CHANGE TODAY. VSS, A/O. PT VERY DECONDITIONED, TURNED Q2 PRN. PT REFUSED PHYSICAL THERAPY AND OT TODAY. PT WILLING TO TURN. LIDOCAINE PATCHES TO BOTH HIPS. PT HAS DENIED PAIN AND HAS BEEN SLEEPING ON AND OFF. SPO2 STABLE ON 2L NC, ENCOURAGING DEEP BREATHING, PT BREATHS ARE SHALLOW. PLAN IS DC TO SNF WITH AVALIBLE BED. WILL CTM AND REPORT TO SEBASTIÁN SANTIAGO.
--- NOTE | 2018-11-11 05:01 | NUR ---
SHIFT SUMMARY SLEPT WELL, NO ACUTE EVENTS OR CHANGES NOTED. WILL CONTINUE TO MONITOR.
[2018-11-11 05:19] LABS: Bun/Creatinine Ratio 18.8 (12.0-20.0); Calcium, Blood 8.3 mg/dL (8.5-10.1); Creatinine, Blood 1.17 mg/dL (0.40-1.00); Potassium, Blood 3.7 mmol/L (3.5-5.5)
--- NOTE | 2018-11-11 17:16 | NUR ---
SUMMARY- PT ALERT AND ORIENTED. USES CALL LIGHT TO MAKE NEEDS KNOWN. PT IS BEDBOUND WITH HX MS, NUMBNESS IN ARMS AND LEGS. PT TURNED R SIDE TO BACK Q 2. MEDICATED WITH VICODIN Q6 FOR BACK PAIN IN ADDITION TO FENT PATCH AND LIDO PATCH TO LOW BACK. PT HAD 2 MED SOFT BM'S TODAY AFTER SUPPOSITORY TODAY. MEPILEX INTACT TO COCCYC. TOLERATING FOOD AND FLUIDS, PT IS A FEEDER. OFFERING WATER FREQ, PT TAKES FREQ SMALL AMOUNTS OF WATER AT A TIME. ONE COUGHING EPISODE, WITH SMALL ASPIRATION WITH WATER. LEGALLY BLIND, CALL LIGHT IN REACH AT ALL TIMES. RAI PATENT AND DRAINING.
--- NOTE | 2018-11-12 07:31 | NUR ---
NOC SHIFT SUMMARY PT IS PLEASANT AND COOPERATIVE WITH CARE. HX MS. VSS. LIKES TO BE BUNDLED UP WITH PILLOWS. TURNED THROUGHOUT THE NIGHT. PAIN TREATED PER EMAR. SLEPT MUCH OF THE NIGHT. APPEARS IN NO ACUTE DISTRESS. REPORT TO ONCOMING RN.
--- NOTE | 2018-11-12 15:20 | NUR ---
Clinical Visit; Asked by hospitalist to discuss hospice with this pt again. Pt is alert, oriented. She reports 8/10 pain. She seems a little grumpy. When I asked if she would discuss hospice again, she turned to me and yelled, "NO!" She turns away and does not want to have a conversation. Reported pain to nursing.
--- NOTE | 2018-11-12 19:58 | NUR ---
SUMMARY- PT DEPENDANT IN CARE. BLIND, BUT VERBAL AND PLEASANT. COOPERATIVE, ABLE TO USE CALL LIGHT. PT TURNET Q2, RAI CATH. NO BM TODAY. PT ASSISTED WITH ALL FOOD AND FLUIDS. MIN APPETITE TODAY, TOLERATING FLUIDS OK. FREQ SMALL SIPS OF WATER. MEDICATED FOR BACK PAIN WITH LORTAB X2 WITH MARGINAL RELEIF. REPORTED TO MARICEL PERKINS
--- NOTE | 2018-11-13 04:42 | NUR ---
SHIFT SUMMARY: PT IS ALERT AND ORIENTED. PT IS CALM AND COOPERATIVE WITH CARE. PT CALLS APPROPRIATELY. PT IS A MAX ASSIST, NOT OUT OF BED OVERNIGHT. PT REPORTS CHRONIC BACK PAIN, MEDICATING PER EMAR. PT DENIES NAUSEA, VOMITING, AND SOB. RAI PATENT AND DRAINING YELLOW URINE. PT SLEPT INTERMITTENTLY THROUGHOUT THE NIGHT. AWAITING PLACEMENT. NO ACUTE CHANGES OVERNIGHT. WILL REPORT TO DAY NURSE.
[2018-11-13 05:43] LABS: Bun/Creatinine Ratio 20.6 (12.0-20.0); Calcium, Blood 8.4 mg/dL (8.5-10.1); Creatinine, Blood 1.31 mg/dL (0.40-1.00); Potassium, Blood 4.2 mmol/L (3.5-5.5)
--- NOTE | 2018-11-13 17:46 | NUR ---
PATIENT IS ALERT AND ORIENTED AND COOPERATIVE WITH CARE. TURNED AND REPOSTIONED Q2H. RAI IN PLACE AND PATENT. NO COMPLAINTS OF PAIN. PALLIATIVE CARE AND CARE MANAGERS CAME TO TALK TO PATIENT AND FAMILY ABOUT F[facility]ER HOME PLACEMENT. WILL CONTINUE TO MONITOR.
--- NOTE | 2018-11-14 04:05 | NUR ---
SHIFT SUMMARY: PT IS ALERT AND ORIENTED. PT IS CALM AND COOPERATIVE WITH CARE. PT NOT OUT OF BED OVERNIGHT, MAX ASSIST. PT CALLS APPROPRIATELY. PT REPORTS CHRONIC BACK PAIN, MEDICATING PER EMAR. PT DENIES NAUSEA, VOMITING, AND SOB. AWAITING PLACEMENT. NO ACUTE CHANGES OR COMPLICATIONS THIS SHIFT. BED IN LOW POSITION, CALL LIGHT WITHIN REACH. WILL REPORT TO DAY NURSE.
--- NOTE | 2018-11-14 17:57 | NUR ---
PATIENT IS ALERT AND ORIENTED AND COOPERATIVE WITH CARE. RAI IS IN PLACE AND PATENT. PATIENT CALLS APPROPRIATELY AND ASKS TO USE THE BEDPAN. NO COMPLAINTS OF PAIN. STAFF ASSISTS PATIENT WITH MEALS. 2L O2 VIA NC. Q2H TURNS AND REPOSTIONING WITH PILLOWS. WILL CONTINUE TO MONITOR.
--- NOTE | 2018-11-15 18:11 | NUR ---
SHIFT SUMMARY 83 YR OLD FEMALE ADMITTED FOR HYPOXIA. FULL CODE. RAI IN PLACE. 2 LPM O2 @ BASELINE. A&O X3-4. MECHANICAL SOFT DIET. MEDS TAKEN WHOLE WITH WATER. Q 2 TURNS. PT HAS MS. ON BEDREST. BEDPAN USED FOR BM'S. MEPLEX ON COCCYX. GRANDDAUGHTER XIOMARA IS POA. BLIND IN LEFT EYE. PLAN IS FOR DC W/ADULT [facility] CARE OR ASSISTED LIVING. HX: DM2, COPD, AFIB, CHF.
--- NOTE | 2018-11-16 04:03 | NUR ---
NOC SHIFT SUMMARY PT IS AAOX4, HX OF MS AND NEEDS ASSISTANCE WITH MEALS AND DRINKING FLUIDS. 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 NO ACUTE EVENTS NOTED. HAS SLEPT MOST OF NIGHT. AWAITING PLACEMENT IN BEHAVIORAL THERAPIST CARE. [id number]. SHE IS BLIND IN L EYE. PRESENTLY APPEARS TO BE SLEEPING AND IN NO ACUTE DISTRESS. VSS. PAIN TREATED PER EMAR. WILL CONTINUE TO MONITOR.
--- NOTE | 2018-11-16 18:15 | NUR ---
SHIFT SUMMARY 83 YR OLD FEMALE ADMITTED FOR HYPOXIA. FULL CODE. MECHANICAL SOFT DIET. RAI CATHETER PATENT. MEDS WHOLE WITH WATER. Q 2 TURNS. O2 @ 2 LPM. NO IV ACCESS. BEDPAN FOR BM'S. MEPILEX ON COCCYX. ACHS, DM2. HX: MS, DM2, COPD, CHF, AFIB, NONSTEMI UT. BLIND IN LEFT EYE. PLAN IS FOR DC TO AFC OR ASSISTED LIVING FACILITY. NO NOTABLE CHANGES OBSERVED THIS SHIFT.
--- NOTE | 2018-11-17 04:12 | NUR ---
NOC SHIFT SUMMARY PT IS PLEASANT AND COOPERATIVE WITH CARE THIS NIGHT. FAMILY WERE IN TO VISIT EARLY IN THE EVENING. PT IS ON 2L O2 WHICH IS NORMAL FOR HER. Q2 TURN. AWAITING DC TO ASSISTED CARE FACILITY. VSS. TREATED FOR PAIN ONCE PER EMAR. PT HAS SLEPT MUCH OF THE NIGHT. PRESENLTY APPEARS TO BE SLEEPING, APPEARS IN NO ACUTE DISTRESS. WILL CONTINUE TO MONITOR.
--- NOTE | 2018-11-17 18:08 | NUR ---
SHIFT SUMMARY PT HAVING FREQUENT SOFT BM. STOOL SOFTENERS HELD THIS AM. PT DIGOXIN & AMIODARONE HELD DUE TO LOW HR & DBP. DR. DAWSON AWARE & STATED SHE WILL LOOK AT PT MED DOSAGE. NO OTHER CHANGES IN ASSESSMENT AT THIS TIME. VSS. WILL CONTINUE TO MONITOR UNTIL TURNOVER IS COMPLETE. FAMILY AT BEDSIDE.
--- NOTE | 2018-11-18 04:53 | NUR ---
CHIEF LEARNING OFFICER SUMMARY NO ACUTE CHANGES THIS SHIFT. PT AAOX3 AND PLEASANT. MEDICATED FOR PAIN X2 THIS SHIFT PER EMAR. PT STATES SHE HAS CHRONIC BACK PAIN. ASSISTED PT WITH REPOSITIONING SEVERAL TIMES THROUGH THE SHIFT ALLOWED BY PT. RAI CATH PATENT AND DRAINING. VSS, WILL CONTINUE TO MONITOR.
--- NOTE | 2018-11-18 17:24 | NUR ---
SHIFT SUMMARY NO CHANGES IN ASSESSMENT AT THIS TIME. VSS. PT CONTINUES TO SAT IN THE 90S ON 2L VIA NC. RAI INTACT & DRAINING. WILL CONTINUE TO MONITOR UNTIL TURNOVER IS COMPLETE.
--- NOTE | 2018-11-19 06:52 | NUR ---
slept with the light on for security, call light in reach and tv on, 2L via nc, no iv, will continue to monitor and treat, no major change in condition noted during shift
--- NOTE | 2018-11-19 17:41 | NUR ---
SHIFT SUMMARY 83 YR OLD FEMALE ADMITTED FOR HYPOXIA. FULL CODE. HX: MULTIPLE SCLEROSIS. Q 2 TURNS. ACHS. NO IV ACCESS. NO INSULIN COVERAGE NEEDED TODAY. PT HAS STATED SHE HAS PAIN 2X DURING THIS SHIFT. HX:CHF, HYPOXIA, RESP FAILURE, COPD, AFIB, NSTEMI, PNEUMONIA, DM2. PLAN IS FOR DC TO SNF.
--- NOTE | 2018-11-20 07:05 | NUR ---
no significant canges in medical condition during shift, call light in reach, saline locked, 3L via nc, bsr given to returning day staff, medicated for pain
--- NOTE | 2018-11-20 17:45 | NUR ---
SHIFT SUMMARY [facility] CALLED ME TODAY AND INFORMED ME THAT PREVIOUSLY THE PT HAD BEEN USING A SCOOTER TO GET AROUND AND HAD HOME CAREGIVERS GOING TO THE PT'S HOME. I INFORMED THEM THAT THE PT IS CURRENTLY BEDBOUND. THEY STATED THEY WOULD CALL THE CAREGIVERS FOR MORE INFORMATION ABOUT WHAT LED UP TO THIS. OTHERWISE NO NEW CHANGES THROUGHOUT SHIFT. AWAITING PLACEMENT. PT IS ABLE TO MAKE REQUESTS AND CALLS APPROPRIATELY. SHE WILL NOT EAT ANYTHING EXCEPT TOMATO SOUP & DRINKS ONLY WATER.
--- NOTE | 2018-11-21 04:00 | NUR ---
SHIFT SUMMARY: 83 Y/O FEMALE RESTED COMFORTABLY ALL SHIFT, REPOSITIONED BY STAFF Q2H, REQUIRES ASSISTANCE WITH ALL ADLS/IADLS TO INCLUDE DRINKING WATER VIA GLASS PATIENT UNABLE TO HOLD CUP, ALERT AND ORIENTED X2, C/O BACK PAIN / AND GIVEN NORCO 5/325MG WITH RELIEF FELT, FOELY DRAINING CLEAR YELLOW FLUID, STILL WAITING PLACEMENT INTO LTCU, BED ALARM APPLIED, BED LOW POSITION, CALL LIGHT AT SIDE.
[2018-11-21 05:58] LABS: Calcium, Blood 8.4 mg/dL (8.5-10.1); Creatinine, Blood 1.11 mg/dL (0.40-1.00); Potassium, Blood 4.4 mmol/L (3.5-5.5)
--- NOTE | 2018-11-21 17:29 | NUR ---
SHIFT SUMMARY PATIENT IS PLEASANT BUT VERY ANXIOUS. SHE HAS HAD 2 DOSES OF THE 3 AVAILABLE FOR HER PAIN MEDICATIONS. HER SECOND DOSE WAS AT 1400 TODAY. NO ACUTE CONCERNS FROM THE PATIENT WHO IS CURRENTLY AWAITING HER PLACEMENT AT [facility] PER RENTAL CLERK TOOL AND EQUIPMENT AND THE DOCTOR. NO ACUTE CONCERNS FOR THE PATIENT AT THIS TIME.
--- NOTE | 2018-11-22 05:17 | NUR ---
TIER TRUCK DRIVER SUMMARY NO ACUTE CHANGES THIS SHIFT. PT AAOX3 AND VERY PLEASANT. TREATED FOR PAIN X2 THIS SHIFT. PT HAS CHRONIC LOWER BACK PAIN. PT HAS RESTED MOST OF THE SHIFT. PT VERY RESISTANT TO Q2H REPOSITIONING. VSS. PT WAITING FOR A POSS DC TO [facility] WITHIN THE NEXT FEW DAYS. WILL CONTINUE TO MONITOR.
[2018-11-22 14:06] LABS: BASOPHILS ABSOLUTE AUTO 0.02 K/mm3 (0.00-0.23); BASOPHILS PERCENT AUTO 1 % (0-2); EOSINOPHILS ABSOLUTE AUTO 0.12 K/mm3 (0.00-0.68); EOSINOPHILS PERCENT AUTO 3 % (0-6); Hematocrit 37.8 % (33.0-51.0); Hemoglobin 11.3 g/dL (11.5-16.0); IMMATURE GRAN ABSOLUTE AUTO 0.05 K/mm3 (0.00-0.10); IMMATURE GRAN PERCENT AUTO 1 % (0-1); LYMPHOCYTES PERCENT AUTO 23 % (21-46); MONOCYTES ABSOLUTE AUTO 0.36 K/mm3 (0.16-1.47); MONOCYTES PERCENT AUTO 9 % (4-13); Mean Corpuscular HGB 26.8 pg (26.0-34.0); Mean Corpuscular HGB Conc 29.9 g/dL (31.5-36.5); Mean Corpuscular Volume 90 fL (80-100); Mean Platelet Volume 9.7 fL (9.1-12.4); NEUTROPHILS ABSOLUTE AUTO 2.43 K/mm3 (1.96-9.15); NEUTROPHILS PERCENT AUTO 63 % (41-73); Platelet Count 255 K/mm3 (150-400); RDW Coefficient Variation 15.2 % (11.7-14.2); RDW Standard Deviation 49.8 fL (35.1-46.3); Red Blood Cell Count 4.21 M/mm3 (3.80-5.20); White Blood Cell Count 3.88 K/mm3 (4.00-11.30)
[2018-11-22 14:50] LABS: Bun/Creatinine Ratio 17.6 (12.0-20.0); Calcium, Blood 8.6 mg/dL (8.5-10.1); Creatinine, Blood 0.97 mg/dL (0.40-1.00); Potassium, Blood 4.4 mmol/L (3.5-5.5)
--- NOTE | 2018-11-22 18:41 | NUR ---
SHIFT SUMMARY PATIENT IS STILL VERY ANXIOUS NO ACUTE CONCERNS AT THIS TIME. SHE IS AWAITING [facility] PLACEMENT AT THIS TIME. SHE IS JUST AWAITING PRIOR AUTHORIZATION FROM THE STATE.
--- NOTE | 2018-11-23 05:03 | NUR ---
SHIFT SUMMARY: PT IS ALERT AND ORIENTED. PT IS CALM AND COOPERATIVE WITH CARE. PT CALLS APPROPRIATELY. PT IS A LIFT FOR TRANSFERS, NOT OUT OF BED OVERNIGHT. PT REPORTS CHRONIC BACK PAIN, MEDICATING PER EMAR. PT DENIES NAUSEA, VOMITING, AND SOB. O2 @ 2 L KEEPING SATS > 90%. PT SLEPT INTERMITTENTLY THROUGHOUT THE NIGHT. AWAITING PLACEMENT. NO ACUTE CHANGES THIS SHIFT. WILL REPORT TO DAY NURSE.
[2018-11-23 05:58] LABS: BASOPHILS ABSOLUTE AUTO 0.03 K/mm3 (0.00-0.23); BASOPHILS PERCENT AUTO 1 % (0-2); EOSINOPHILS ABSOLUTE AUTO 0.14 K/mm3 (0.00-0.68); EOSINOPHILS PERCENT AUTO 4 % (0-6); Hematocrit 36.3 % (33.0-51.0); Hemoglobin 10.8 g/dL (11.5-16.0); IMMATURE GRAN ABSOLUTE AUTO 0.05 K/mm3 (0.00-0.10); IMMATURE GRAN PERCENT AUTO 1 % (0-1); LYMPHOCYTES ABSOLUTE AUTO 1.27 K/mm3 (0.84-5.20); LYMPHOCYTES PERCENT AUTO 36 % (21-46); MONOCYTES ABSOLUTE AUTO 0.46 K/mm3 (0.16-1.47); MONOCYTES PERCENT AUTO 13 % (4-13); Mean Corpuscular HGB 26.8 pg (26.0-34.0); Mean Corpuscular HGB Conc 29.8 g/dL (31.5-36.5); Mean Corpuscular Volume 90 fL (80-100); Mean Platelet Volume 9.9 fL (9.1-12.4); NEUTROPHILS ABSOLUTE AUTO 1.61 K/mm3 (1.96-9.15); NEUTROPHILS PERCENT AUTO 45 % (41-73); Platelet Count 246 K/mm3 (150-400); RDW Coefficient Variation 15.4 % (11.7-14.2); RDW Standard Deviation 50.3 fL (35.1-46.3); Red Blood Cell Count 4.03 M/mm3 (3.80-5.20); White Blood Cell Count 3.56 K/mm3 (4.00-11.30)
[2018-11-23 06:17] LABS: Bun/Creatinine Ratio 13.6 (12.0-20.0); Calcium, Blood 8.5 mg/dL (8.5-10.1); Creatinine, Blood 1.03 mg/dL (0.40-1.00); Potassium, Blood 4.1 mmol/L (3.5-5.5)
--- NOTE | 2018-11-23 17:05 | NUR ---
SHIFT SUMMARY PATIENT IS PLEASANT, ALERT AND ORIENTED. BLIND. NO ACUTE CONCERNS FROM THE PATIENT TODAY. SHE HAS BEEN LYING DOWN TODAY, NO INCREASE IN BOWEL MOVEMENTS. ONE DOSE OF PAIN MEDS WAS GIVEN.
--- NOTE | 2018-11-24 03:46 | NUR ---
SHIFT SUMMARY- NO ACUTE CHANGES OVERNIGHT. PT. SLEPT ON/OFF T/O THE SHIFT. PAIN WELL CONTROLLED WITH CURRENT PAIN MEDS. RAI IN PLACE AND DRAINING WELL. PT. REPOSITIONED Q2 AND PRN. WAITING FOR PLACEMENT TO SNF FOR THE AM.
--- NOTE | 2018-11-24 17:26 | NUR ---
SHIFT SUMMARY 84 YR OLD FEMALE ADMITTED FOR HYPOXIA. FULL CODE. RAI IN PLACE PATENT AND DRAINING. SHE IS AWAITING PLACEMENT IN A SNF, PREFERS [facility]. PT IS BEDBOUND, HX OF MS. SHE IS A&O X4 AND CAN CALL APPROPRIATELY. LEGALLY BLIND IN LEFT EYE. USES A BEDPAN FOR BM'S. ULCER ON LEFT FOOT IS OPEN TO AIR. ACHS CHEMSTICKS. NO IV ACCESS. 2 LPM O2 @ BASELINE.
--- NOTE | 2018-11-25 04:45 | NUR ---
SHIFT SUMMARY- NO ACUTE CHANGES OVERNIGHT. PT. RESTED T/O THE SHIFT. MEDICATED WITH PAIN MED X2 LAST NIGHT, TOLERATED WELL. RAI IN PLACE AND DRAINING WELL. PT. STILL WAITING FOR PLACEMENT TO [facility] THIS AM. CALL LIGHT WITHIN REACH AND SIDE RAILS UP X2. WILL CONT TO MONITOR.
[2018-11-25] MEDS ORDERED: Biscolax10 MG PR (14:42)
[2018-11-25] MEDS ORDERED: Colace100 MG PO (14:45)
[2018-11-25] MEDS ORDERED: Isosorbide Mono30 MG PO (14:45)
[2018-11-25] MEDS ORDERED: Vsl#3 Capsule1 EACH PO (14:46)
[2018-11-25] MEDS ORDERED: ONDA4ODT MM (14:47)
[2018-11-25] MEDS ORDERED: Pedi-Dri 100,0060 GM TOP (14:47)
[2018-11-25] MEDS ORDERED: OXYB5 PO (14:47)
--- NOTE | 2018-11-25 16:35 | NUR ---
DISCHARGE NOTE PT DISCHARGE VIA STRETCHER WITH [facility] IN ROUTE TO [facility]. WRITTEN RX PROVIDED AND DISCHARGE PAPERWORK COMPLETED BY CARERO AND REVIEWED BY RN. REPORT GIVEN TO JODY AT [facility].
[2018-12-24] MEDS ORDERED: Humalog100 UNIT/1 SC (15:12)
[2018-12-24] MEDS ORDERED: LISI5 PO (15:15)
[2018-12-24] MEDS ORDERED: CLIN300 PO (15:16)
[2018-12-24] MEDS ORDERED: ROSU5 (15:17)
== END 2018-11-25 16:32 ==
LOC: ER 22:37 → MEDS 22:38
PROVIDERS: Emergency Medicine; Family Medicine; Internal Medicine; ADMIT Internal Medicine
DX: J96.21 Acute and chronic respiratory failure with hypoxia (principal); I50.33 Acute on chronic diastolic (congestive) heart failure; N17.9 Acute kidney failure, unspecified; I48.91 Unspecified atrial fibrillation; M54.9 Dorsalgia, unspecified; M54.5 Low back pain; N18.3 Chronic kidney disease, stage 3 (moderate); I21.4 Non-ST elevation (NSTEMI) myocardial infarction; J18.9 Pneumonia, unspecified organism; R33.9 Retention of urine, unspecified; G35 Multiple sclerosis; R79.1 Abnormal coagulation profile; K21.9 Gastro-esophageal reflux disease without esophagitis; J44.9 Chronic obstructive pulmonary disease, unspecified; Z79.02 Long term (current) use of antithrombotics/antiplatelets; Z79.899 Other long term (current) drug therapy; Z88.5 Allergy status to narcotic agent; Z88.0 Allergy status to penicillin; Z88.8 Allergy status to other drugs, medicaments and biological substances
CPT/HCPCS: 36415; 51702; 71045; 72100; 73502; 80048; 80053; 80162; 81001; 82947; 83735; 83880; 85025; 85027; 87086; 93005; 93010; 94640; 94660; 94760; 94761; 94762; 97110; 97162; 97167; 97530; 97535; 99285-25; A9270-GY; G0378; J1650; J1940; J3010; J7030; J7512

== ENCOUNTER 2018-11-28 14:48 | Emergency (ER) | payer MEDICARE, OTHER ==
[~2018-11-28] VITALS: Ht 162.6 cm; Wt 97.5 kg
[~2018-11-28 14:48] MED LIST changes: +Biscolax10 MG PR; +CLOP75 PO; +Colace100 MG PO; +Isosorbide Mono30 MG PO; +ONDA4ODT MM; +OXYB5 PO; +Pedi-Dri 100,0060 GM TOP; +Vsl#3 Capsule1 EACH PO
[2018-11-28 15:35] LABS: BASOPHILS ABSOLUTE AUTO 0.04 K/mm3 (0.00-0.23); BASOPHILS PERCENT AUTO 1 % (0-2); EOSINOPHILS ABSOLUTE AUTO 0.03 K/mm3 (0.00-0.68); EOSINOPHILS PERCENT AUTO 0 % (0-6); Hematocrit 43.8 % (33.0-51.0); Hemoglobin 13.1 g/dL (11.5-16.0); IMMATURE GRAN ABSOLUTE AUTO 0.14 K/mm3 (0.00-0.10); IMMATURE GRAN PERCENT AUTO 2 % (0-1); LYMPHOCYTES ABSOLUTE AUTO 1.22 K/mm3 (0.84-5.20); LYMPHOCYTES PERCENT AUTO 16 % (21-46); MONOCYTES ABSOLUTE AUTO 0.36 K/mm3 (0.16-1.47); MONOCYTES PERCENT AUTO 5 % (4-13); Mean Corpuscular HGB 26.6 pg (26.0-34.0); Mean Corpuscular HGB Conc 29.9 g/dL (31.5-36.5); Mean Corpuscular Volume 89 fL (80-100); Mean Platelet Volume 9.9 fL (9.1-12.4); NEUTROPHILS ABSOLUTE AUTO 5.88 K/mm3 (1.96-9.15); NEUTROPHILS PERCENT AUTO 77 % (41-73); Platelet Count 281 K/mm3 (150-400); RDW Coefficient Variation 15.2 % (11.7-14.2); Red Blood Cell Count 4.93 M/mm3 (3.80-5.20); White Blood Cell Count 7.67 K/mm3 (4.00-11.30)
[2018-11-28 15:57] LABS: Alanine Aminotransfer (ALT/SGP 21 U/L (12-78); Albumin, Blood 2.7 g/dL (3.4-5.0); Albumin/Globulin Ratio 0.7 (0.8-1.8); Alk Phos 119 U/L (50-136); Anion Gap 8 mmol/L (6-16); Aspartate Aminotrans (AST/SGOT 18 U/L (12-37); Bilirubin, Total 0.5 mg/dL (0.1-1.0); Blood Urea Nitrogen 12 mg/dL (8-24); Bun/Creatinine Ratio 13.7 (12.0-20.0); CO2, Blood 33 mmol/L (21-32); Calcium, Blood 9.1 mg/dL (8.5-10.1); Chloride, Blood 99 mmol/L (98-108); Creatinine, Blood 0.87 mg/dL (0.40-1.00); Glomerular Filtration Rate >60 (60-); Glucose, Blood 200 mg/dL (70-99); Potassium, Blood 3.9 mmol/L (3.5-5.5); Sodium, Blood 140 mmol/L (136-145); Total Protein, Blood 6.7 g/dL (6.4-8.2)
[2018-11-28 16:07] LABS: Source, Urine Clean Catch
[2018-11-28 16:17] LABS: Digoxin (Lanoxin) 0.48 ug/mL (0.80-2.00)
[2018-11-28 16:21] LABS: Bilirubin, Urine Neg (Neg); Blood, Urine 2+ (Neg); Glucose Qualitative, Urine 2+ (Neg); Ketones, Urine 3+ (Neg); Leukocyte Esterase, Urine 1+ (Neg); Nitrite, Urine Neg (Neg); Protein, Urine 3+ (Neg); Specific Gravity, Urine 1.015 (1.003-1.022); Urobilinogen, Urine NORM (Normal)
[2018-11-28 16:43] LABS: Appearance, Urine Hazy (Clear); Color, Urine Yellow (P-Yellow)
[2018-11-28 16:44] LABS: Red Blood Cells, Urine 0-2 /hpf (0-2); Squamous Epithelial Cells Few /hpf (Few); Transitional Epithelial Cells Few /hpf ({null, 0-Rare}); Yeast/Fungi Urine Many /hpf
[2018-11-28 16:45] LABS: Bacteria Many /hpf
[2018-11-28] MEDS ORDERED: ONDA4ODT MM (17:34)
[2018-11-28] MEDS ORDERED: CEFP200 PO (17:34)
[2018-11-28] MEDS ORDERED: Flagyl500 MG PO (17:34)
[2018-12-24] MEDS ORDERED: Humalog100 UNIT/1 SC (15:12)
[2018-12-24] MEDS ORDERED: LISI5 PO (15:15)
[2018-12-24] MEDS ORDERED: CLIN300 PO (15:16)
[2018-12-24] MEDS ORDERED: ROSU5 (15:17)
== END 2018-11-28 18:10 | disposition home or self-care (01) ==
LOC: ER 14:48
PROVIDERS: Emergency Medicine
DX: K52.9 Noninfective gastroenteritis and colitis, unspecified (principal); Z88.0 Allergy status to penicillin; Z88.5 Allergy status to narcotic agent; Z88.6 Allergy status to analgesic agent; Z88.8 Allergy status to other drugs, medicaments and biological substances; Z91.013 Allergy to seafood; Z79.899 Other long term (current) drug therapy; Z79.52 Long term (current) use of systemic steroids; E11.9 Type 2 diabetes mellitus without complications; E78.5 Hyperlipidemia, unspecified; Z86.73 Personal history of transient ischemic attack (TIA), and cerebral infarction without residual deficits
CPT/HCPCS: 74177; 80053; 80162; 81001; 83690; 85025; 87077; 87086; 87186; 96374-59; 99284-25; A9270-GY; J2405; Q9967

== ENCOUNTER 2019-02-19 10:07 | Day surgery (SDC) | payer MEDICARE, OTHER ==
[~2019-02-19] VITALS: Ht 156.2 cm; Wt 70.0 kg
[~2019-02-19 10:07] MED LIST changes: +CEFP200 PO; +CLIN300 PO; +Flagyl500 MG PO; +Humalog100 UNIT/1 SC; +LISI5 PO; +ROSU5
[2019-02-19] MEDS ORDERED: POTCHL20ER PO (11:43)
[2019-02-19] MEDS ORDERED: PANT40 PO (11:45)
[2019-02-19] MEDS ORDERED: ACET325 PO (11:47)
[2019-02-19] MEDS ORDERED: BISA10S PR (11:49)
[2019-02-19] MEDS ORDERED: BASAGLAR SC (12:00)
[2019-02-19 12:01] LABS: Anion Gap 4 mmol/L (6-16); Blood Urea Nitrogen 6 mg/dL (8-24); Bun/Creatinine Ratio 7.4 (12.0-20.0); CO2, Blood 36 mmol/L (21-32); Calcium, Blood 7.6 mg/dL (8.5-10.1); Chloride, Blood 107 mmol/L (98-108); Creatinine, Blood 0.81 mg/dL (0.40-1.00); Glomerular Filtration Rate >60 (60-); Glucose, Blood 77 mg/dL (70-99); Potassium, Blood 3.2 mmol/L (3.5-5.5); Sodium, Blood 147 mmol/L (136-145)
[2019-02-19] MEDS ORDERED: LIDOCAINE1 EACH TOP (12:04)
--- NOTE | 2019-02-19 12:11 | NUR ---
Pt seen by Dr. Herrera pt is with chon caruso, Pt is BLIND, she is unable to ambulate due to severe MS. Pt resting with 02 @2 liters. Pt has hx of CHF, RI, back pain with multiple surgeries to back. She is responsive, cooperative and oriented.
--- NOTE | 2019-02-19 12:35 | NUR ---
Post receiving FBS from lab of 77 D5w1/2 ns hung prior to pt going to paving and surfacing labourer. Pt verbalized in the event of a cardiac arrest she would be given treatment. Pt verbalized understanding. Pt also instructed that after procedure was done she would return to comfort care status. Pt verbalizes understanding.
--- NOTE | 2019-02-19 14:42 | NUR ---
SBAR FROM Cornelia Fernandez RN, pt flat in reverse trendelenburg, Pt in with stable vss. Right groin site with no bleeding or hematoma. Pt with d51/2 800 jorge. infusing into Left hand iv tko with NS 400 jorge at 50/hr. Pt w/spo2 on left foot w/ good wave form. Both side rails up. Pt given water to drink, she is flat and deborah well.
--- NOTE | 2019-02-19 18:44 | NUR ---
Report given to Jose SANTIAGO at [facility]. Dr. Herrera verbally stated we could send pt home without results from chest x-ray. [facility] called for transport.
--- NOTE | 2019-02-19 19:04 | NUR ---
DISCHARGE PT REMAINED A&OX3 DURING RECOVERY. [facility] HERE TO TAKE PT TO [facility]. REPORT GIVEN TO PINION AND WHEEL TRUER. IV DC'D WITH CANULA IN TACT. R GROIN SITE [id number] HEMATOMA NOTED. PT STATED HER PAIN HAD IMPROVED SINCE MEDICATION ( PER JUL) AND REPOSITIONING PAIN REMAINING IN MID BACK AREA 09/12. SBAR CALLED AND GIVEN TO MELODIE SANTIAGO AT [facility]. PT WHEELD OUT IN PERSONAL WHEEL CHAIR BY [facility].
--- NOTE | 2019-02-19 19:10 | NUR ---
ATTENDS PT ATTENDS CHANGED TWICE. 1ST ATTEND CHANGED HAD A SMALL FORMED BROWN BOWEL MOVEMENT. SECOND CHANGED WAS CLEAN.
== END 2019-02-19 23:37 | disposition home or self-care (01) ==
LOC: MHTC 10:07
PROVIDERS: Radiology Diagnostic Radiology
DX: E11.51 Type 2 diabetes mellitus with diabetic peripheral angiopathy without gangrene (principal); E11.621 Type 2 diabetes mellitus with foot ulcer; I70.245 Atherosclerosis of native arteries of left leg with ulceration of other part of foot; I70.201 Unspecified atherosclerosis of native arteries of extremities, right leg; L97.529 Non-pressure chronic ulcer of other part of left foot with unspecified severity; E11.42 Type 2 diabetes mellitus with diabetic polyneuropathy; E11.319 Type 2 diabetes mellitus with unspecified diabetic retinopathy without macular edema; I10 Essential (primary) hypertension; Z79.4 Long term (current) use of insulin; Z88.5 Allergy status to narcotic agent; Z88.6 Allergy status to analgesic agent; Z88.0 Allergy status to penicillin; Z88.8 Allergy status to other drugs, medicaments and biological substances; Z79.02 Long term (current) use of antithrombotics/antiplatelets; Z79.899 Other long term (current) drug therapy
CPT/HCPCS: 36415; 37226; 37228; 71045; 75625; 75716; 75774; 80048; 82947; 85347; 99152; 99153; A9270-GY; C1725; C1760; C1769; C1874; C1887; C1894; C2623; J1644; J2250; J3010; J7030; J7040; J7042; Q9967